=== PATIENT | male | born 1990 | race Two or more races ===

== ENCOUNTER 2021-09-07 11:16 | Emergency (ER) | payer MEDICAID, OTHER ==
[~2021-09-07] VITALS: Ht 170.2 cm; Wt 88.5 kg
[2021-09-07 11:57] VITALS: BP 157/97
[2021-09-07] MEDS ORDERED: methylPREDNISolone SOD SUCC 125 MG/2 ML VL IM ONE (13:00)
[2021-09-07] MEDS ORDERED: EPINEPHrine HCL 1 MG/1 ML AMP SC ONE (13:00)
[2021-09-07] MEDS ORDERED: METH4PAK PO (13:36)
== END 2021-09-07 13:41 | disposition home or self-care (01) ==
LOC: ER 11:16
DX: T78.3XXA Angioneurotic edema, initial encounter (principal); T78.40XA Allergy, unspecified, initial encounter; X58.XXXA Exposure to other specified factors, initial encounter
CPT/HCPCS: 96372; 99284; J0171; J2930